=== PATIENT | female | born 1955 | race Caucasian/White ===

== ENCOUNTER → 2024-07-03 10:27 | Outpatient (REF) | payer MEDICARE, SELFPAY | LOC: HWWDC 10:27 | PROVIDERS: ATTENDING PHYSICIAN Advanced Practice Midwife; FAMILY PHYSICIAN Family Medicine | DX: Z12.31 Encounter for screening mammogram for malignant neoplasm of breast (principal) | CPT/HCPCS: 77063; 77067 ==

== ENCOUNTER → 2025-07-04 09:03 | Outpatient (REF) | payer MEDICARE, SELFPAY | LOC: HWWDC 09:03 | PROVIDERS: ATTENDING PHYSICIAN Advanced Practice Midwife; FAMILY PHYSICIAN Family Medicine | DX: Z12.31 Encounter for screening mammogram for malignant neoplasm of breast (principal) | CPT/HCPCS: 77063; 77067 ==

== ENCOUNTER 2025-08-11 11:21 | Emergency (ER) | payer MEDICARE, SELFPAY ==
[2025-08-11] VITALS (14 sets, daily range): BP systolic 173–227; BP diastolic 80–119; BMI 31.6
[2025-08-11 12:34] LABS: Hematocrit 41.5 % (37.0-47.0); Hemoglobin 14.3 g/dL (12.0-16.0); Mean Corp Hgb Conc. 34.5 g/dL (33.0-37.0); Mean Corpuscular Volume 85.9 fL (81.0-99.0); Nucleated Red Blood Cells % 0 %; Platelet Count 265 10^3/uL (130-400); Red Cell Dist. Width 12.3 % (11.5-14.5)
[2025-08-11 12:40] LABS: ALT (SGPT) 24 U/L (0-35); AST (SGOT) 24 U/L (14-36); Albumin 4.8 g/dl (3.5-5.0); Alkaline Phosphatase 78 U/L (38-126); Blood Urea Nitrogen 20 mg/dl (7-17); Calcium 9.8 mg/dl (8.4-10.2); Carbon Dioxide 25 mmol/L (22-30); Chloride 104 mmol/L (98-107); Glucose 100 mg/dl (70-99); Potassium 4.3 mmol/L (3.5-5.1); Sodium 140 mmol/L (135-145); Total Protein 8.4 g/dl (6.3-8.2); eGFR 53.39
[2025-08-11 12:50] LABS: Troponin I < 0.012 ng/ml
[2025-08-11] MEDS: COZAAR 50 MG PO (16:17)
--- NOTE | 2025-08-11 16:42 | ED.GENMED ---
History of Present Illness
<Jeevan Mo Jr., PA-C - Last Filed: 08/11/25 17:48>
General
Chief Complaint: Blood Pressure Problem
Source: patient
Exam Limitations: none
Time Seen by Provider: 08/11/25 15:50
Nursing documentation reviewed up to this point in time: agreed with
History of Present Illness
History of Present Illness:
70-year-old female presenting to the emergency department today with concerns of elevated blood pressure. She claims that she additionally had an episode of vertigo Monday night and early Monday morning which was 2 days ago where she had room
spinning dizziness that was worse with positioning and movement seem to improve with sitting still. Does have a history of vertigo was diagnosed with BPPV in the past. Symptoms have not recurred since 2 days ago. She has been checking her blood
pressure 10-15 times daily since with blood pressures over the 200s over low 100s. Was recently started on losartan a few months ago additionally has been taking atenolol for multiple decades. Denies any ongoing chest pain did have very brief
episode 2 days ago of chest heaviness. That is since resolved. Denies any numbness weakness changes in vision nausea vomiting.
Past History
<Jeevan Mo Jr., PA-C - Last Filed: 08/11/25 17:48>
Past History
ED Past Medical History: GERD and HTN
ED Past Surgical History: Orthopedic (facial fractures, Left wrist f, Bilateral knee replacements)
Social History
Tobacco: Non-smoker
Alcohol: None
Personal:
Living: with family
Review of Systems
<Jeevan Mo Jr., PA-C - Last Filed: 08/11/25 17:48>
Review of Systems
Allergies reviewed?: Yes
All Other Systems: ROS reviewed and negative except as documented in HPI and ROS
Phy Exam
<Jeevan Mo Jr., PA-C - Last Filed: 08/11/25 17:48>
Physical Exam
Physical Exam:
GENERAL: Alert , in no apparent distress
EYE: pupils equal and reactive
NECK: Supple, no significant adenopathy.
ENT: o/p clr, mmm.
CARDIAC: Regular rate and rhythm .
LUNGS: Clear breath sounds bilaterally, no acute respiratory distress, no wheezes/rales/rhonchi
ABDOMEN: Soft, without focal tenderness, no r/g, no cvat
NEUROLOGICAL: Alert and oriented, no focal neuro deficits
SKIN: Warm and dry, skin intact.
MUSCULOSKELETAL: No edema, well perfused.
PSYCH: Normal and appropriate interaction.
Course
<Jeevan Mo Jr., PA-[place] - Last Filed: 08/11/25 17:48>
Orders/Labs/Results
Orders:
Orders
08/11/25 12:00
Electrocardiogram (*1) Urgent
Reason for Study: Hypertension, Benign
EKG- Treatment ONCE
08/11/25 12:[address] [CT Head W/o Iv Contrast] Urgent
Comment:
Reason For Exam: dizzy
08/11/25 12:09
Complete Blood Count/With Diff Urgent
Comprehensive Metabolic Panel Urgent
Troponin I Urgent
08/11/25 16:13
Losartan [Cozaar] 50 mg PO NOW STA
Abnormal Lab Results
08/11/25
12:09
Absolute Neuts (auto) 7.3 H 10^3/uL
(1.4-6.5)
Absolute Lymphs (auto) 1.1 L 10^3/uL
(1.2-3.4)
Neutrophils % 79.4 H %
(42.2-75.2)
Lymphocytes % 12.3 L %
(20.5-51.1)
BUN 20 H mg/dl
(7-17)
Creatinine 1.1 H mg/dL
(0.6-1.0)
Glucose 100 H mg/dl
(70-99)
Total Protein 8.4 H g/dl
(6.3-8.2)
08/11/25 12:09
08/11/25 12:09
Vital Signs
Initial and Last Documented VS:
Initial Vital Signs
Temp Pulse Resp BP Pulse Ox
98.1 F 73 18 227/119 98
08/11/25 11:53 08/11/25 11:53 08/11/25 11:53 08/11/25 11:53 08/11/25 11:53
Last Documented Vital Signs
Temp Pulse Resp BP Pulse Ox
98.5 F 73 20 173/90 99
08/11/25 15:59 08/11/25 19:01 08/11/25 19:01 08/11/25 19:01 08/11/25 19:01
<Ashtyn Navarrete, DO - Last Filed: 08/11/25 19:14>
Orders/Labs/Results
Orders:
Orders
08/11/25 12:00
Electrocardiogram (*1) Urgent
Reason for Study: Hypertension, Benign
EKG- Treatment ONCE
08/11/25 12:[address] [CT Head W/o Iv Contrast] Urgent
Comment:
Reason For Exam: dizzy
08/11/25 12:09
Complete Blood Count/With Diff Urgent
Comprehensive Metabolic Panel Urgent
Troponin I Urgent
08/11/25 16:13
Losartan [Cozaar] 50 mg PO NOW STA
Abnormal Lab Results
08/11/25
12:09
Absolute Neuts (auto) 7.3 H 10^3/uL
(1.4-6.5)
Absolute Lymphs (auto) 1.1 L 10^3/uL
(1.2-3.4)
Neutrophils % 79.4 H %
(42.2-75.2)
Lymphocytes % 12.3 L %
(20.5-51.1)
BUN 20 H mg/dl
(7-17)
Creatinine 1.1 H mg/dL
(0.6-1.0)
Glucose 100 H mg/dl
(70-99)
Total Protein 8.4 H g/dl
(6.3-8.2)
08/11/25 12:09
08/11/25 12:09
Vital Signs
Initial and Last Documented VS:
Initial Vital Signs
Temp Pulse Resp BP Pulse Ox
98.1 F 73 18 227/119 98
08/11/25 11:53 08/11/25 11:53 08/11/25 11:53 08/11/25 11:53 08/11/25 11:53
Last Documented Vital Signs
Temp Pulse Resp BP Pulse Ox
98.5 F 73 20 173/90 99
08/11/25 15:59 08/11/25 19:01 08/11/25 19:01 08/11/25 19:01 08/11/25 19:01
<Jeevan Mo Jr., PA-C - Last Filed: 08/11/25 17:48>
MDM/Problems Addressed
MDM/Problems Addressed:
70-year-old female presenting to the emergency department today with concerns of ongoing elevated blood pressure over the past few days. In the low 200s over 100s at home. No ongoing symptoms at this point did have an episode of vertigo a few days
ago as well as a brief episode of chest heaviness. On arrival here blood pressure is elevated in the 200s over 110s. Other vital signs are normal. Labs unremarkable troponin negative EKG without emergent findings. Head CT negative. Neurologic
examination normal. Heart and lung exam normal. Patient in no distress no evidence of hypertensive emergency at this time. Initial blood pressure in the 200s over 100s but improving to the 180s over 80s. No ongoing symptoms. Patient vies to
increase her home blood pressure meds and advised for close outpatient follow-up. Otherwise return precautions given.
<Jeevan Mo Jr., PA-C - Last Filed: 08/11/25 17:48>
*Pulse Oximetry
SaO2: 99
Oxygen Mode of Delivery: Room air
Patient hypoxic: no (98)
*Critical Care Note
Total Time (30-74mins, 75-104mins- exclusive of procedures): Not Applicable
ED Attending Note
<Jeevan Mo Jr., PA-C - Last Filed: 08/11/25 17:48>
-
Portions of this chart may have been created with voice recognition software.� Occasional wrong word or��sound alike� substitutions may have occurred due to the inherent limitations of voice recognition software.
<Ashtyn Navarrete DO - Last Filed: 08/11/25 19:14>
ED Attending Note
Patient seen and examined by attending physician: Yes
I performed the substantive portion of visit, reviewed & personally made and approve the management plan that is documented in note by myself or ALVINA.: Yes
I performed a history and physical exam of patient and discussed management with resident, I reviewed resident's note and agree with documented findings and plan of care.: Yes
ED Attending Note:
70-year-old female presents to the ER for evaluation of elevated blood pressure. Patient has experienced a few episodes of vertigo over the past few days, provoked with movement of her head. She denies any vomiting. No headache. She did have an
episode of chest pressure earlier today. Patient has been compliant with taking her atenolol twice daily and her losartan in the morning. She admits that she may not be drinking enough water recently. Vital signs reviewed, patient is awake,
alert, appears in no acute distress, blood pressure improved spontaneously prior to my evaluation, normocephalic neck, no photophobia, no dysdiadochokinesia, no ataxia, no pronator drift, GCS is 15. I discussed with patient and present
bedside very reassuring workup in the emergency department. She was given additional dose of her losartan. CT head does not show any evidence of intracranial hemorrhage or evidence for stroke. I discussed with her most likely etiology symptoms
related to benign peripheral vertigo and treatment of same. Advised patient to increase her dose of losartan to twice daily and to follow-up with her primary care physician for reevaluation of her blood pressure. Patient felt comfortable with plan
at current along with need to encourage additional water intake daily. She had no questions prior to leaving the department.
Discharge Plan
Departure
Patient Disposition: Home (Routine Discharge)
Date of Disposition: 08/11/25
Time of Disposition: 17:39
Patient with high blood pressure during this ER visit?: Yes
Condition: Good
Covid-19: Not Applicable
Discharge Problem:
High blood pressure, Vertigo
Instructions: BLOOD PRESSURE
Prescriptions:
New
meclizine 25 mg tablet
25 mg PO BID PRN (Reason: motion sickness) Qty: 10 0RF
No Action
calcium carbonate [Tums] 200 mg calcium (500 mg) Tablet,Chewable
200 mg PO HS
atenolol 50 mg Tablet
50 mg PO BID
omeprazole magnesium [Prilosec OTC] 20 mg Tablet,Delayed Release (Dr/Ec)
10 mg PO DAILY
Systane (PF) 0.4-0.3 % Dropperette
2 drp OPHTHALMIC (EYE) PRN PRN (Reason: dry eye)
cholecalciferol (vitamin D3) [Vitamin D3] 25 mcg (1,000 unit) Tablet
25 mcg PO DAILY
Women's Multivitamin 18 mg iron-400 mcg-500 mg Tablet
1 tab PO DAILY
mecobalamin (vitamin B12) 1,000 mcg Tablet,Chewable
1,000 mcg PO DAILY
aflibercept 2 mg/0.05 mL Syringe
1 mg INTRAVITREAL ONCE
Rx Instructions:
Last dose 08/29/2023
Metamucil 3.4 gram/5.4 gram Powder
1.5 tbsp PO HS
Referrals:
Jace Ventura MD [Family Provider, [facility]]
Activity Restrictions/Additional Instructions:
You came to the emergency department today with concerns of elevated blood pressure. Here was improving. Please increase your losartan to 100 mg daily and follow-up closely with the primary care doctor for reassessment. Please check your blood
pressure once daily and keep a log. Return for any worsening, new or concerning symptoms.
Interventions
Interventions:
*Risk Screen - Suicide Last Done: 08/11/25 12:02
*General Assessment Last Done: 08/11/25 15:59
*Neglect/Abuse Screening Last Done: 08/11/25 12:02
*ED- Fall Risk Assessment Last Done: 08/11/25 15:59
*ED COVID-19 Vaccine History Last Done: 08/11/25 15:59
*ED Influenza Vaccine History Last Done: 08/11/25 15:59
ED- Cardiac Assessment Last Done: 08/11/25 15:59
ED- Neurological Assessment Last Done: 08/11/25 15:59
ED- Pulmonary Assessment Last Done: 08/11/25 15:59
Discharge Date and Time
Print Language: HAITIAN
== END 2025-08-11 19:35 | disposition home or self-care (01) ==
LOC: EMR 11:21
PROVIDERS: Emergency Medicine; EMERGENCY PHYSICIAN Emergency Medicine; FAMILY PHYSICIAN Family Medicine
DX: I10 Essential (primary) hypertension (principal); R42 Dizziness and giddiness; K21.9 Gastro-esophageal reflux disease without esophagitis; Z96.653 Presence of artificial knee joint, bilateral
CPT/HCPCS: 99284; 70450; 80053; 84484; 85025; 93005

== ENCOUNTER → 2025-09-25 09:56 | Outpatient (REF) | payer MEDICARE, SELFPAY | LOC: HWRAD 09:56 | PROVIDERS: ATTENDING PHYSICIAN Advanced Practice Midwife; FAMILY PHYSICIAN Family Medicine | DX: Z78.0 Asymptomatic menopausal state (principal) | CPT/HCPCS: 77080 ==